=== PATIENT | female | born 1990 | race Caucasian/White ===

== ENCOUNTER 2017-06-06 23:58 | Emergency (ER) | payer OTHER ==
[2017-06-07 00:16] VITALS: TEMP 98.7; BMI 23.3
[2017-06-07] MEDS ORDERED: FAMOTIDINE 20 MG/50 ML IVPB 50 ML IVPB ONE (00:16)
[2017-06-07] MEDS ORDERED: methylPREDNISolone NA SUCC 125 MG/2 ML VIAL IVPB ONE (00:16)
[2017-06-07] MEDS ORDERED: methylPREDNISolone NA SUCC 125 MG/2 ML VIAL ONE (00:23)
--- NOTE | 2017-06-07 00:32 | PDOC ---
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 Throat tingling but no swelling or difficulty swallowing or speaking or breathing, presents for evaluation but did not take any medications. No other known ALLERGIES or exposures, no difficulty breathing or wheezing or vomiting. Past History - Past Medical History Allergies/Adverse Reactions: Allergies Allergy/AdvReac Type Severity Reaction Status Date / Time No Known Allergies Allergy Verified 08/04/16 20:56 Home Medications: Ambulatory Orders Prednisone [Deltasone -] 60 mg PO DAILY #15 tablet 06/07/17 - Suicide/Smoking/Psychosocial Hx Smoking History: Never smoked Have you smoked in the past 12 months: No Information on smoking cessation initiated: No Hx Alcohol Use: No Drug/Substance Use Hx: No Review of Systems - Review of Systems Constitutional: No: Chills, Fever HEENTM: No: Throat Pain, Throat Swelling (tingling throat sensation) Respiratory: No: Shortness of Breath, Wheezing Cardiac (ROS): No: Chest Pain, Lightheadedness, Syncope ABD/GI: No: Vomiting Integumentary: Yes: See HPI All Other Systems: Reviewed and Negative *Physical Exam - Vital Signs Last Vital Signs Temp Pulse Resp BP Pulse Ox 98.7 F 92 H 14 144/92 99 06/07/17 00:13 06/07/17 00:13 06/07/17 00:13 06/07/17 00:13 06/07/17 00:13 - Physical Exam Comments: 06/07/17 00:29 Vital signs normal, heart rate 90 at triage but 84 on exam GENERAL: The patient is awake, alert, and fully oriented, in no acute distress speaking full sentences. HEAD: Normal with no signs of trauma. EYES: PERRL, EOMI, sclera anicteric, conjunctiva clear with no pallor ENT: oropharynx clear without exudates. Uvula is midline, no edema, no stridor area Moist mucous membranes. NECK: Normal range of motion, supple. LUNGS: Breath sounds equal, clear to auscultation bilaterally. No wheeze/ crackles. HEART: Regular rate and rhythm, normal S1 and S2 without murmur or rub. ABDOMEN: Soft/nontender/nondistended. BS wnl. No guarding or rebound. No palpable masses. No hepatosplenomegaly. EXTREMITIES: Normal range of motion, no edema. 2+ distal pulses. No cords, erythema, or tenderness. NEUROLOGICAL: Cranial nerves II through XII grossly intact. Normal speech, normal gait. PSYCH: Normal mood, normal affect. SKIN: Scattered urticaria predominantly on the thighs, but also presents on the left forehead and upper extremities near the forearms Medical Decision Making - Medical Decision Making 06/07/17 00:30 27-year-old female healthy with known shrimp ALLERGY presents with urticaria one hour after eating shrimp. No airway compromise, hemodynamically stable and well-appearing. IV access obtained emergently IV Benadryl, steroids, Pepcid Reassess/monitor 06/07/17 01:58 Significantly improved after medications, has been resting comfortably with near complete resolution of the urticaria. Only residual to lesions on left thigh. Throat tingling has resolved, airway remains patent without swelling, no respiratory distress. Requesting discharge, has EpiPen at home, will take Benadryl as needed, understands strict return precautions. Friend at bedside will accompany the patient home. *DC/Admit/Observation/Transfer Diagnosis at time of Disposition: Urticaria due to food allergy - Discharge Dispostion Disposition: HOME Condition at time of disposition: Improved - Prescriptions Prescriptions: Prednisone [Deltasone -] 60 mg PO DAILY #15 tablet - Referrals Referrals: Porfirio Art MD [Primary Care Provider] - - Patient Instructions Printed Discharge Instructions: DI for Hives Additional Instructions: Activity as tolerated. Stay hydrated. You were given Benadryl, Pepcid, and steroids through an IV for your ALLERGIC reaction. Continue prednisone for 5 more days as prescribed, take Benadryl 50 mg every 4- 6 hours as needed for any persistent itching. Continue your medications as previously prescribed by your physician. Avoid shrimp. Carry your EpiPen with you at all times. You should follow up with your primary doctor as soon as possible regarding today's emergency department visit. Return to the emergency department for any new or concerning symptoms, particularly persistent or spreading itching or rash, throat swelling or tightness or difficulty breathing, fevers or vomiting.
[2017-06-07 02:31] VITALS: BP 120/70; PULSE 67
== END 2017-06-07 02:31 | disposition home or self-care (01) ==
LOC: JER 23:58
PROC: 3E033GC Introduction of Other Therapeutic Substance into Peripheral Vein, Percutaneous Approach (ICD-10-PCS; principal; 2017-06-06)
PROC: 3E033GC Introduction of Other Therapeutic Substance into Peripheral Vein, Percutaneous Approach (ICD-10-PCS; 2017-06-06)
PROC: 3E0333Z Introduction of Anti-inflammatory into Peripheral Vein, Percutaneous Approach (ICD-10-PCS; 2017-06-06)
DX: T78.1XXA Other adverse food reactions, not elsewhere classified, initial encounter (principal); L50.8 Other urticaria; Z91.013 Allergy to seafood
CPT/HCPCS: 99283-25

== ENCOUNTER 2019-04-17 18:34 | Emergency (ER) | payer OTHER ==
[2019-04-17] MEDS ORDERED: MAG HYDROX/AL HYDROX/SIMETH 30 ML UNIT-DOSE CUP PO ONE (18:40)
[2019-04-17] MEDS ORDERED: RANITIDINE HCL 150 MG/10 ML UNIT-DOSE PO ONE (18:40)
--- NOTE | 2019-04-17 18:40 | PDOC ---
Rapid Medical Evaluation Medical Evaluation: Allergies Allergy/AdvReac Type Severity Reaction Status Date / Time No Known Allergies Allergy Verified 08/04/16 20:56 I have performed a brief in-person evaluation of this patient. The patient presents with a chief complaint of: experiencing epigastric burning x 1.5 weeks; has tried ivan seltzers, tums which help but only provide temporary relief; denies fever, n/v/d Pertinent physical exam findings: In NAD I have ordered the following: Zantac, Maalox The patient will proceed to the ED for further evaluation. 04/17/19 18:38
[2019-04-17 18:42] VITALS: BP 134/81; PULSE 88; TEMP 97.9; BMI 25.0
[2019-04-17] MEDS ORDERED: LIDOCAINE VISCOUS 2% ORAL/TOP 20 ML UNIT-DOSE CUP MM ONE ×2 (19:02→19:07)
[2019-04-17] MEDS ORDERED: MAG HYDROX/AL HYDROX/SIMETH 30 ML UNIT-DOSE CUP ONE (19:12)
[2019-04-17] MEDS ORDERED: RANITIDINE HCL 150 MG/10 ML UNIT-DOSE ONE ×2 (19:13→19:16)
[2019-04-17] MEDS ORDERED: LIDOCAINE VISCOUS 2% ORAL/TOP 20 ML UNIT-DOSE CUP ONE (19:18)
--- NOTE | 2019-04-17 19:23 | PDOC ---
History of Present Illness - General Chief Complaint: Pain Stated Complaint: HEART BURN Time Seen by Provider: 04/17/19 18:38 History Source: Patient - History of Present Illness Initial Comments: 04/17/19 19:18 Chief complaint: Heartburn Patient is a healthy 29-year-old female who just traveled to [facility] and developed "heartburn" while there. She is been using Allie-[place] which gives her a week for about 1-2 hours. She has not been limiting what she eats. Patient has no fever, nausea, vomiting or diarrhea. Patient appears well GENERAL/CONSTITUTIONAL: No fever, weakness. dizziness HEAD, EYES, EARS, NOSE AND THROAT: No change in vision. No ear pain or discharge. No sore throat. CARDIOVASCULAR: No chest pain RESPIRATORY: No shortness of breath or cough GASTROINTESTINAL: No pain, nausea, vomiting, diarrhea or constipation GENITOURINARY: No dysuria MUSCULOSKELETAL: No neck or back pain SKIN: No rash NEUROLOGIC: No headache, vertigo, loss of consciousness, or loss of sensation. GENERAL: The patient is awake, alert, and fully oriented, in no acute distress. HEAD: Normal with no signs of trauma. EYES: Pupils equal, round and reactive to light, sclera anicteric, conjunctiva clear. ENT: pharynx: no erythema, no exudate, uvula midline NECK: supple CHEST: clear, nontender, rr ABD: soft, nontender BACK: no tenderness or signs of injury EXTREMITIES: Normal range of motion, no edema. NEUROLOGICAL: Normal speech, normal gait. SKIN: Warm, Dry Past History - Past Medical History Allergies/Adverse Reactions: Allergies Allergy/AdvReac Type Severity Reaction Status Date / Time No Known Allergies Allergy Verified 04/17/19 18:43 Home Medications: Ambulatory Orders predniSONE [Deltasone -] 60 mg PO DAILY #15 tablet 06/07/17 COPD: No - Suicide/Smoking/Psychosocial Hx Smoking History: Never smoked Have you smoked in the past 12 months: No Hx Alcohol Use: No Drug/Substance Use Hx: No Substance Use Type: None *Physical Exam - Vital Signs Last Vital Signs Temp Pulse Resp BP Pulse Ox 97.9 F 88 16 134/81 98 04/17/19 18:38 04/17/19 18:38 04/17/19 18:38 04/17/19 18:38 04/17/19 18:38 Medical Decision Making - Medical Decision Making 04/17/19 19:19 Healthy 29-year-old female who gets epigastric pain when eating, cannot decide if she's hungry or not hungry, taking Allie-[place] with relief but it doesn't last very long. Patient appears well, nonfebrile, no right upper quadrant tenderness, no concerning physical findings. Patient will get GI cocktail, and be reassessed. 04/17/19 19:28 pt reports she did see her primary care doctor last , he gave her medicine for 7 days and she tried to schedule an appointment with the [facility] candy department manager, and they gave her an appointment in May. I recommended she follow-up with her regular doctor to help her facilitate and reassess 04/17/19 19:29 Discussed issues, findings, results, applicable medications and treatments and follow-up. All these were understood and all questions were answered *DC/Admit/Observation/Transfer Diagnosis at time of Disposition: Reflux gastritis - Discharge Dispostion Disposition: HOME Condition at time of disposition: Stable Decision to Admit order: No - Referrals Referrals: Porfirio Art MD [Primary Care Provider] - - Patient Instructions Printed Discharge Instructions: DI for Gastritis Additional Instructions: Do not eat greasy, spicy food, did not drink caffeine, alcoholic beverages Omeprazole 20 mg once daily Return to the ER if fever, severe pain, vomiting or getting sicker. Otherwise follow-up with either your doctor or the candy department manager. - Post Discharge Activity
== END 2019-04-17 19:34 | disposition home or self-care (01) ==
LOC: JERFT 18:34
DX: K29.60 Other gastritis without bleeding (principal); K21.9 Gastro-esophageal reflux disease without esophagitis
CPT/HCPCS: 99282-25

== ENCOUNTER 2019-07-02 10:48 | Emergency (ER) | payer OTHER ==
[2019-07-02 10:57] VITALS: BMI 25.9
[2019-07-02] MEDS ORDERED: FAMOTIDINE 20 MG/50 ML IVPB 20 MG/50 ML MG IVPB ONE ×2 (12:06→12:29)
[2019-07-02] MEDS ORDERED: SODIUM CHLORIDE 1,000 ML IV STA (12:06)
[2019-07-02] MEDS ORDERED: MAG HYDROX/AL HYDROX/SIMETH 30 ML UNIT-DOSE CUP PO ONE (12:07)
--- NOTE | 2019-07-02 12:27 | PDOC ---
History of Present Illness - General Chief Complaint: Vomiting/Diarrhea Stated Complaint: VOMITING/EARACHE Time Seen by Provider: 07/02/19 11:50 History Source: Patient Exam Limitations: Clinical Condition - History of Present Illness Initial Comments: 07/02/19 13:17 Patient with no significant past medical history presented with complaint of ringing in left ear with popping sound in left ear and 2 days history of diarrhea, epigastric pain and vomiting. Patient reports recently started a new visit and does not know if that is causing the symptoms. Denies urinary frequency, burning with urination, fever, chills, weakness or body. Patient also reported headache since this morning. Denies dizziness, photophobia or change in vision. Denies any other symptoms Is this a multiple visit Asthma Patient?: No Timing/Duration: other (2 days) Past History - Past Medical History Allergies/Adverse Reactions: Allergies Allergy/AdvReac Type Severity Reaction Status Date / Time No Known Allergies Allergy Verified 04/17/19 18:43 Home Medications: Ambulatory Orders predniSONE [Deltasone -] 60 mg PO DAILY #15 tablet 06/07/17 Mag Hydrox/Aluminum Hyd/Simeth [Maalox Advanced Suspension] 30 ml PO Q8H PRN # 200 ml 07/02/19 Ondansetron HCl [Zofran] 4 mg PO Q8H PRN #12 tablet 07/02/19 Pantoprazole Sodium [Protonix] 40 mg PO DAILY #7 tablet. 07/02/19 COPD: No - Immunization History Immunization Up to Date: No - Psycho Social/Smoking Cessation Hx Smoking History: Never smoked Have you smoked in the past 12 months: No Information on smoking cessation initiated: No Hx Alcohol Use: No Drug/Substance Use Hx: No Substance Use Type: None Review of Systems - Review of Systems Able to Perform ROS?: Yes Is the patient limited Bermudian proficient: No Constitutional: No: Chills, Fever, Malaise HEENTM: No: Symptoms Reported, See HPI, Eye Pain, Blurred Vision, Tearing, Recent change in vision, Double Vision, Cataracts, Ear Pain, Ocular Prothesis, Ear Discharge, Nose Pain, Nose Congestion, Tinnitus, Nose Bleeding, Hearing Loss , Throat Pain, Throat Swelling, Mouth Pain, Dental Problems, Difficulty Swallowing, Mouth Swelling, Other Respiratory: No: Symptoms reported, See HPI, Cough, Orthopnea, Shortness of Breath, SOB with Exertion, SOB at Rest, Stridor, Wheezing, Productive cough, Hemoptysis, Other Cardiac (ROS): No: Symptoms Reported, See HPI, Chest Pain, Edema, Irregular Heart Rate, Lightheadedness, Palpitations, Syncope, Chest Tightness, Other ABD/GI: Yes: Nausea, Vomiting, Abdominal cramping (epigastric pain from vomiting ) : No: Burning, Discharge, Frequency, Urgency All Other Systems: Reviewed and Negative *Physical Exam - Vital Signs Last Vital Signs Temp Pulse Resp BP Pulse Ox 99.4 F 70 18 107/54 L 97 07/02/19 10:54 07/02/19 10:54 07/02/19 10:54 07/02/19 10:54 07/02/19 10:54 - Physical Exam Comments: 07/02/19 13:43 GENERAL: Well developed, well nourished. Awake and alert. No acute distress. HEENT: No erythema in bilateral ear canal. Tympanic membrane normal bilateral .normocephalic, atraumatic. PERRLA, EOMI. No conjunctival pallor. Sclera are non -icteric. Moist mucous membranes. Oropharynx is clear. NECK: Supple. Full ROM. CARDIOVASCULAR: Regular rate and rhythm. No murmurs, rubs, or gallops. PULMONARY: No evidence of respiratory distress. Lungs clear to auscultation bilaterally. No wheezing, rales or rhonchi. ABDOMINAL: Soft. Non-distended. Mild epigastric pain. No rebound or guarding. No organomegaly. Normoactive bowel sounds. MUSCULOSKELETAL Normal range of motion at all joints. SKIN: Warm and dry. Normal capillary refill. No rashes. No jaundice. NEUROLOGICAL: Alert, awake, appropriate. Gait is normal without ataxia. PSYCHIATRIC: Cooperative. Good eye contact. Appropriate mood General Appearance: Yes: Nourished, Appropriately Dressed. No: Apparent Distress ED Treatment Course - LABORATORY CBC & Chemistry Diagram: 07/02/19 12:47 07/02/19 12:47 Medical Decision Making - Medical Decision Making 07/02/19 13:18 Patient with no significant past medical history presented with complaint of ringing in left ear with popping sound in left ear and 2 days history of diarrhea, epigastric pain and vomiting. Patient reports recently started a new visit and does not know if that is causing the symptoms. Denies urinary frequency, burning with urination, fever, chills, weakness or body. Patient also reported headache since this morning. Denies dizziness, photophobia or change in vision. Denies any other symptoms Exam significant for mild epigastric tenderness without guarding or rebound otherwise unremarkable exam. Normal ENT exam with no erythema in bilateral ear canal and normal tympanic membrane bilateral. Patient symptoms likely gastroenteritis with otalgia from cyanosis congestion versus less likely cholecystitis. CBC, CMP and lipase level ordered. IV hydration with 1 L normal saline ordered. Pepcid 20 mg IV ordered for epigastric pain and Zofran 4 mg sublingual ordered for nausea vomiting. Reassessed after lab results and medication 07/02/19 13:45 CBC and chemistry level with no acute abnormality. Patient reported improvement of abdominal pain post IV hydration and Pepcid. Beta-hCG negative. Patient stable for discharge for treatment of viral gastroenteritis on Pepcid and Maalox for abdominal discomfort and Zofran as needed for nausea and vomiting with advised to increase fluid intake and follow-up with GI as needed Discharge - Discharge Information Problems reviewed: Yes Clinical Impression/Diagnosis: Gastroenteritis, Otalgia, left ear Diarrhea Qualifiers: Diarrhea type: unspecified type Qualified Code(s): R19.7 - Diarrhea, unspecified Condition: Stable Disposition: HOME - Admission No - Additional Discharge Information Prescriptions: Mag Hydrox/Aluminum Hyd/Simeth [Maalox Advanced Suspension] 30 ml PO Q8H PRN # 200 ml PRN Reason: abdominal discomfort Ondansetron HCl [Zofran] 4 mg PO Q8H PRN #12 tablet PRN Reason: vomiting Pantoprazole Sodium [Protonix] 40 mg PO DAILY #7 tablet.dr - Follow up/Referral Referrals: Porfirio Art MD [Primary Care Provider] - Hollis Mattson DO [Staff Physician] - - Patient Discharge Instructions Patient Printed Discharge Instructions: DI for Viral Gastroenteritis -- Adult Additional Instructions: Your lab work was normal. Your symptoms likely caused by viral gastroenteritis. Take prescribed medication as prescribed. Increase fluid intake. Use Mucinex to help with ear pain as it may be caused by sinus congestion. Follow-up with your primary care as needed for ear pain and follow- up with the referred GI if abdominal pain persist for more than 3 days - Post Discharge Activity
[2019-07-02] MEDS ORDERED: MAG HYDROX/AL HYDROX/SIMETH 30 ML UNIT-DOSE CUP ONE (12:29)
[2019-07-02] MEDS ORDERED: ACETAMINOPHEN 1000 MG/100 ML VIAL (NON FORMULARY) IVPB ONE (12:42)
[2019-07-02] MEDS ORDERED: ACETAMINOPHEN INJECTION 100 ML IVPB ONE (12:49)
[2019-07-02 13:08] LABS: BASO % 0.1 % (0-2.0); HEMATOCRIT 40.7 % (32.4-45.2); HEMOGLOBIN 13.8 GM/dL (10.7-15.3); LYMPH % 3.4 % (8-40); MCHC 33.9 g/dl (32.0-36.0); MEAN CELL VOLUME 94.4 fl (80-96); MEAN PLT VOLUME 7.7 fl (7.5-11.1); MONO % 4.4 % (3.8-10.2); NEUT % 92.1 % (42.8-82.8); PLATELET COUNT 241 K/MM3 (134-434); RDW 12.8 % (11.6-15.6); WHITE BLOOD COUNT 11.3 K/mm3 (4.0-10.0)
[2019-07-02 13:27] LABS: ALBUMIN 3.8 g/dl (3.4-5.0); BILIRUBIN,TOTAL 0.9 mg/dL (0.2-1); BLOOD UREA NITROGEN 8.6 mg/dL (7-18); CALCIUM 8.9 mg/dL (8.5-10.1); CREATININE 0.8 mg/dL (0.55-1.3); TOT PROT 6.8 g/dl (6.4-8.2)
--- NOTE | 2019-07-02 13:55 | PDOC ---
*Physical Exam - Vital Signs Last Vital Signs Temp Pulse Resp BP Pulse Ox 99.4 F 70 18 107/54 L 97 07/02/19 10:54 07/02/19 10:54 07/02/19 10:54 07/02/19 10:54 07/02/19 10:54 - Physical Exam Comments: 07/02/19 13:51 vss, preg pending alert, nad mmm, no jaundice/pallor s1s2 rrr, ctab soft/nt/nd bs nl, no guarding/rebound. neuro nl ED Treatment Course - LABORATORY CBC & Chemistry Diagram: 07/02/19 12:47 07/02/19 12:47 - ADDITIONAL ORDERS Additional order review: Laboratory Results 07/02/19 07/02/19 12:47 12:47 Sodium 137 Potassium 4.0 Chloride 106 Carbon Dioxide 26 Anion Gap 5 L BUN 8.6 Creatinine 0.8 Est GFR (CKD-EPI)AfAm 117.10 Est GFR (CKD-EPI)NonAf 101.04 Random Glucose 104 Calcium 8.9 Total Bilirubin 0.9 AST 12 L ALT 17 Alkaline Phosphatase 101 Total Protein 6.8 Albumin 3.8 Lipase 149 07/02/19 12:47 RBC 4.30 MCV 94.4 MCHC 33.9 RDW 12.8 MPV 7.7 Neutrophils % 92.1 H Lymphocytes % 3.4 L D Monocytes % 4.4 Eosinophils % 0.0 Basophils % 0.1 - Medications Given in the ED: ED Medications Discontinued Medications Generic Name Dose Route Start Last Admin Trade Name Lawrenceq PRN Reason Stop Dose Admin Acetaminophen 1,000 mg 07/02/19 12:42 07/02/19 13:09 Ofirmev Injection - IVPB 07/02/19 12:43 1,000 mg ONCE ONE Administration Al Hydroxide/Mg Hydroxide 30 ml 07/02/19 12:07 07/02/19 13:09 Mylanta Oral Suspension - PO 07/02/19 12:08 30 ml ONCE ONE Administration Famotidine/Sodium Chloride 20 mg in 50 mls @ 100 mls/hr 07/02/19 12:06 13:09 Pepcid 20 Mg Premixed Ivpb - IVPB 07/02/19 12:35 100 mls/hr ONCE ONE Administration Sodium Chloride 1,000 mls @ 1,000 mls/hr 07/02/19 12:06 07/02/19 13:09 Normal Saline - IV 07/02/19 13:05 1,000 mls/hr ASDIR STA Administration Medical Decision Making - Medical Decision Making 07/02/19 13:53 Patient seen and evaluated with the nurse practitioner. I agree with the overall evaluation, assessment, and management with the following summary of visit: 29y/o healthy F p/w v/d x1 day in setting of vitamin change, no abd pain/f/c. vss, abd benign Presentation c/w mild viral AGE v. vitamin side effect. labs wnl tolerating PO afte IVF, antiemetic, antacid agres with d/c plan, understands return criteria Discharge - Discharge Information Clinical Impression/Diagnosis: Gastroenteritis, Otalgia, left ear Diarrhea Qualifiers: Diarrhea type: unspecified type Qualified Code(s): R19.7 - Diarrhea, unspecified Condition: Stable Disposition: HOME - Additional Discharge Information Prescriptions: Mag Hydrox/Aluminum Hyd/Simeth [Maalox Advanced Suspension] 30 ml PO Q8H PRN # 200 ml PRN Reason: abdominal discomfort Ondansetron HCl [Zofran] 4 mg PO Q8H PRN #12 tablet PRN Reason: vomiting Pantoprazole Sodium [Protonix] 40 mg PO DAILY #7 tablet.dr - Follow up/Referral Referrals: Hollis Mattson DO [Staff Physician] - Porfirio Art MD [Primary Care Provider] - - Patient Discharge Instructions Patient Printed Discharge Instructions: DI for Viral Gastroenteritis -- Adult Additional Instructions: Your lab work was normal. Your symptoms likely caused by viral gastroenteritis. Take prescribed medication as prescribed. Increase fluid intake. Use Mucinex to help with ear pain as it may be caused by sinus congestion. Follow-up with your primary care as needed for ear pain and follow- up with the referred GI if abdominal pain persist for more than 3 days - Post Discharge Activity
[2019-07-02 15:10] VITALS: BP 101/64; PULSE 82; TEMP 98.1
[2019-07-02 18:42] LABS: ANISOCYTOSIS 0; MACROCYTOSIS 0; PLATELET ESTIMATE NORMAL
== END 2019-07-02 15:09 | disposition home or self-care (01) ==
LOC: JER 10:48
PROC: 3E033NZ Introduction of Analgesics, Hypnotics, Sedatives into Peripheral Vein, Percutaneous Approach (ICD-10-PCS; principal; 2019-07-02)
PROC: 3E033GC Introduction of Other Therapeutic Substance into Peripheral Vein, Percutaneous Approach (ICD-10-PCS; 2019-07-02)
PROC: 3E0337Z Introduction of Electrolytic and Water Balance Substance into Peripheral Vein, Percutaneous Approach (ICD-10-PCS; 2019-07-02)
DX: K52.9 Noninfective gastroenteritis and colitis, unspecified (principal); H92.02 Otalgia, left ear
CPT/HCPCS: 36415; 80053; 83690; 84703; 85025; 99282-25; J0131; J7030

== ENCOUNTER 2022-09-09 23:32 | Emergency (ER) | payer OTHER ==
[2022-09-09 23:39] VITALS: BP 113/65; RESP 20; TEMP 98.2; BMI 28.1
[2022-09-10] MEDS ORDERED: LACTATED RINGERS SOLUTION 1000 ML INFUS.BAG IV ONE (00:13)
[2022-09-10] MEDS ORDERED: ONDANSETRON 4 MG/2 ML VIAL IVPUSH ONE (00:15)
[2022-09-10] MEDS ORDERED: ONDANSETRON 4 MG/2 ML VIAL ONE (00:26)
[2022-09-10] MEDS ORDERED: FAMOTIDINE 20 MG/50 ML IVPB 20 MG/50 ML MG IVPB ONE (00:32)
[2022-09-10 00:58] LABS: BASO % 0.4 % (0-2.0); EOS % 0.3 % (0-4.5); HEMATOCRIT 41.7 % (32.4-45.2); HEMOGLOBIN 13.8 GM/dL (10.7-15.3); LYMPH % 6.7 % (8-40); MCH 30.6 pg (25.7-33.7); MCHC 33.1 g/dl (32.0-36.0); MEAN CELL VOLUME 92.2 fl (80-96); MEAN PLT VOLUME 7.3 fl (7.5-11.1); MONO % 4.6 % (3.8-10.2); PLATELET COUNT 270 10^3/uL (134-434); RBC 4.52 M/mm3 (3.60-5.2); RDW 13.1 % (11.6-15.6); WHITE BLOOD COUNT 7.5 K/mm3 (4.0-10.0)
[2022-09-10 01:01] LABS: PH,URINE 5.5 (5.0-8.0); URINE APPEARANCE CLOUDY; URINE BILIRUBIN NEGATIVE (NEGATIVE); URINE COLOR YELLOW; URINE GLUCOSE (UA) NEGATIVE (NEGATIVE); URINE KETONE NEGATIVE (NEGATIVE); URINE LEUK ESTERASE NEGATIVE (NEGATIVE); URINE NITRITE NEGATIVE (NEGATIVE); URINE PROTEIN NEGATIVE (NEGATIVE)
[2022-09-10 01:03] LABS: HCG,QUALITATIVE URINE Negative
[2022-09-10 01:30] LABS: CALCIUM 8.5 mg/dL (8.5-10.1)
[2022-09-10 01:31] LABS: ALBUMIN 3.6 g/dl (3.4-5.0); BLOOD UREA NITROGEN 9.8 mg/dL (7-18)
[2022-09-10] MEDS ORDERED: ACETAMINOPHEN 325 MG TABLET (FP) PO ONE (01:31)
[2022-09-10 01:34] LABS: CREATININE 0.7 mg/dL (0.55-1.3)
[2022-09-10 01:35] LABS: TOT PROT 6.7 g/dl (6.4-8.2)
[2022-09-10 01:36] LABS: BILIRUBIN,TOTAL 0.4 mg/dL (0.2-1)
[2022-09-10 02:07] VITALS: PULSE 98
== END 2022-09-10 02:08 | disposition home or self-care (01) ==
LOC: JER 23:32
PROC: 3E033GC Introduction of Other Therapeutic Substance into Peripheral Vein, Percutaneous Approach (ICD-10-PCS; principal; 2022-09-09)
DX: A09 Infectious gastroenteritis and colitis, unspecified (principal)
CPT/HCPCS: 0241U-QW; 36415; 80053; 81003; 84703; 85025; 87086; 93005; 93010; 99284-25

== ENCOUNTER 2025-03-19 08:00 | Inpatient (IN) | payer OTHER ==
[2025-03-19 10:20] VITALS: BMI 33.8
[2025-03-19] MEDS: DINOPROSTONE 10 MG VAGINAL SUPPOSITORY VG ONE (10:39)
[2025-03-19 13:43] LABS: HIV INTERPRETATION NEGATIVE (NEGATIVE)
[2025-03-19] MEDS: ELECTROLYTE-148 SOLN 1,000 ML IV SCH (18:00)
[2025-03-19] MEDS ORDERED: ACETAMINOPHEN INJECTION 100 ML ONE (20:42)
[2025-03-19] MEDS: ACETAMINOPHEN 1000 MG/100 ML BAG IVPB ONE (20:45)
[2025-03-19] MEDS ORDERED: BUTORPHANOL TARTRATE 2 MG/ML VIAL IVPB SCH (22:55)
[2025-03-19] MEDS ORDERED: PROMETHAZINE HCL 25 MG/1 ML VIAL IVPB SCH (22:55)
[2025-03-20] MEDS ORDERED: OXYTOCIN 30 UNITS in 0.9% NS 30 UNIT/500 ML INFUS.BAG IVPB ONE (03:07)
[2025-03-20] MEDS: OXYTOCIN 30 UNITS in 0.9% NS 30 UNIT/500 ML INFUS.BAG IVPB SCH (03:30)
[2025-03-20] MEDS: CITRIC ACID/SODIUM CITRATE 30 ML UNIT-DOSE CUP PO ONE (10:30)
[2025-03-20] MEDS ORDERED: morphine SULFATE/PF 1 MG/2 ML (2cc Syringe - QUVA) ONE (10:53)
[2025-03-20] MEDS ORDERED: ACETAMINOPHEN INJECTION 100 ML ONE (12:15)
[2025-03-20] MEDS ORDERED: KETOROLAC TROMETHAMINE 30 MG/1 ML VIAL ONE (12:24)
[2025-03-20 12:30] LABS: CORD BASE EXCESS -4.3 mmol/L (0-2); CORD HCO3 21.8 mmHg (20-29); CORD PCO2 43.3 mmHg (30-78); CORD pH 7.319 (7.14-7.44)
[2025-03-20 12:33] LABS: CORD BASE EXCESS -3.200 mmol/L (0-2); CORD HCO3 26.2 mmHg (20-29); CORD PCO2 64.6 mmHg (30-78); CORD pH 7.226 (7.14-7.44)
[2025-03-20] MEDS ORDERED: OXYTOCIN 20 UNITS in 0.9% NS 20 UNIT/1,000 ML INFUS.BAG IV ONE (13:07)
[2025-03-20] MEDS: OXYTOCIN 20 UNITS in 0.9% NS 20 UNIT/1,000 ML INFUS.BAG IV SCH (13:30)
[2025-03-20] MEDS ORDERED: METHYLERGONOVINE MALEATE 0.2 MG/1 ML AMP IM PRN (14:25)
[2025-03-20] MEDS: IBUPROFEN (CALDOLOR) 800 MG/200 ML PREMIX BAGS IVPB PRN (21:38)
[2025-03-21] MEDS: SIMETHICONE 80 MG TAB.CHEW (FP) PO PRN (03:45)
[2025-03-21] MEDS: ACETAMINOPHEN 325 MG TABLET (FP) PO PRN (03:45)
[2025-03-21 08:00] LABS: ABSOLUTE IMMATURE GRANULOCYTES 0.07 x10^3/uL (0.0-0.031); BASOPHILS # 0.03 x10^3/uL (0.01-0.08); EOSINOPHIL % 0.3 % (0.7-5.8); EOSINOPHILS # 0.03 x10^3/uL (0.04-0.36); MCHC 33.2 g/dl (32.2-35.5); MEAN CELL VOLUME 96.4 fl (79.4-94.8); MEAN PLT VOLUME 9.8 fl (9.4-12.3); MONOCYTE # 0.74 x10^3/uL (0.24-0.86); MONOCYTE % 7.8 % (4.7-12.5); RDW 14.0 % (12.1-16.8)
[2025-03-21] MEDS: ONDANSETRON 4 MG/2 ML VIAL IVPUSH PRN (08:38)
[2025-03-21] MEDS: IBUPROFEN 600 MG TABLET (FP) PO PRN (12:09)
[2025-03-21] MEDS ORDERED: BISACODYL 10 MG SUPP.RECT RC PRN (14:25)
[2025-03-22 20:41] VITALS: RESP 16
[2025-03-23 07:37] LABS: ABSOLUTE IMMATURE GRANULOCYTES 0.06 x10^3/uL (0.0-0.031); BASOPHILS # 0.03 x10^3/uL (0.01-0.08); EOSINOPHIL % 0.5 % (0.7-5.8); EOSINOPHILS # 0.04 x10^3/uL (0.04-0.36); MCHC 32.6 g/dl (32.2-35.5); MEAN CELL VOLUME 96.8 fl (79.4-94.8); MEAN PLT VOLUME 9.5 fl (9.4-12.3); MONOCYTE # 0.44 x10^3/uL (0.24-0.86); MONOCYTE % 5.5 % (4.7-12.5); RDW 14.3 % (12.1-16.8)
[2025-03-23 09:27] VITALS: BP 133/88; PULSE 86; TEMP 99.2
== END 2025-03-23 15:30 | disposition home or self-care (01) | DRG 788 ==
LOC: JLDR 08:00 → J3W 03-20 15:39
PROVIDERS: ADMIT Obstetrics & Gynecology; ATTEND Obstetrics & Gynecology
PROC: 10D00Z1 Extraction of Products of Conception, Low, Open Approach (ICD-10-PCS; principal; 2025-03-20)
DX: O48.0 Post-term pregnancy (principal); Z3A.40 40 weeks gestation of pregnancy; O24.420 Gestational diabetes mellitus in childbirth, diet controlled; O33.4XX0 Maternal care for disproportion of mixed maternal and fetal origin, not applicable or unspecified; O61.9 Failed induction of labor, unspecified; Z37.0 Single live birth
CPT/HCPCS: 36415; 36600; 82803; 82962; 85025; 86850; 86900; 86901; 87389; 88307-TC